=== PATIENT | female | born 1985 | race Caucasian/White ===

== ENCOUNTER 2016-08-09 12:53 | Inpatient (IN) | payer MEDICARE ==
[2016-08-09 15:23] VITALS: BMI 23.3
--- NOTE | 2016-08-09 15:47 | HP ---
COWS - Scale Resting Pulse: 1= NM 81-100 Sweatin= Chills/Flushing Restless Observation: 3= Extraneous Movement Pupil Size: 2= Moderately Dilated Bone or Joint Aches: 2= Severe Diffuse Aches Runny Nose/ Eye Tearin= Runny Nose/Eyes GI Upset > 30mins: 3= Vomiting/Diarrhea Tremor Observation: 2= Slight Tremor Visible Yawning Observation: 2= >3x During Session Anxiety or Irritability: 2=Irritable/Anxious Goose Flesh Skin: 0=Smooth Skin COWS Score: 20 Admission ROS BHS - HPI Chief Complaint: i need help to stop using heroin Allergies/Adverse Reactions: Allergies Allergy/AdvReac Type Severity Reaction Status Date / Time No Known Allergies Allergy Verified 08/09/16 15:42 History of Present Illness: this 31 years old female with heroin dependence,withdrawal symptom,never been in inpatient detox before, in out patient detox 07/09 to 07/17/16 unsuccessful never been in in patient before nicotine dependence depression stated need help to stop using drug Exam Limitations: No Limitations - Ebola screening Have you traveled outside of the country in the last 21 days: No Have you had contact with anyone from an Ebola affected area: No Have you been sick,other than usual withdrawal symptoms: No Do you have a fever: No - Review of Systems Constitutional: Chills, Loss of Appetite, Malaise, Night Sweats, Changes in sleep, Weakness, Unintentional Wgt. Loss EENT: reports: Tearing, Nose Congestion Respiratory: reports: No Symptoms reported Cardiac: reports: No Symptoms Reported GI: reports: Diarrhea, Nausea, Vomiting, Abdominal cramping : reports: No Symptoms Reported Musculoskeletal: reports: Back Pain, Joint Pain, Muscle Pain Integumentary: reports: Dryness Neuro: reports: Headache, Tremors Endocrine: reports: No Symptoms Reported Hematology: reports: No Symptoms Reported Psychiatric: reports: Depressed Patient History - Patient Medical History Hx Anemia: No Hx Asthma: No Hx Chronic Obstructive Pulmonary Disease (COPD): No Hx Cancer: No Hx Cardiac Disorders: No Hx Congestive Heart Failure: No Hx Hypertension: No Hx Hypercholesterolemia: No Hx Pacemaker: No HX Cerebrovascular Accident: No Hx Seizures: No Hx Dementia: No Hx Diabetes: No Hx Gastrointestinal Disorders: No Hx Liver Disease: No Hx Genitourinary Disorders: No Hx Sexually Transmitted Disorders: No Hx Renal Disease (ESRD): No Hx Thyroid Disease: No Hx Human Immunodeficiency Virus (HIV): No (last tested 07/20) Hx Hepatitis C: No Hx Depression: Yes (on med) Hx Suicide Attempt: No Hx Bipolar Disorder: No Hx Schizophrenia: No Other Medical History: no suicidal,no homicidal,cervical herniated disc 10 years - Patient Surgical History Hx Neurologic Surgery: Yes Hx Breast Surgery: Yes (breast augmention of right breast since age 15 years, unsucessful,follow up ) - PPD History Previous Implant?: Yes Documented Results: Negative w/o proof PPD to be Administered?: Yes - Reproductive History Patient is a Female of Child Bearing Age (11 -55 yrs old): Yes Last Menstrual Period: 07/09/16 Patient : No - Smoking Cessation Smoking history: Current every day smoker Have you smoked in the past 12 months: Yes Aproximately how many cigarettes per day: 20 Cigars Per Day: 0 Hx Chewing Tobacco Use: No Initiated information on smoking cessation: Yes 'Breaking Loose' booklet given: 08/09/16 - Substance & Tx. History Hx Alcohol Use: No Hx Substance Use: Yes Substance Use Type: Heroin Hx Substance Use Treatment: No - Substances Abused Heroin Route: Injection Frequency: Daily Amount used: 3 bags Age of first use: 27 Date of Last Use: 08/09/16 Marijuana/Hashish Route: Smoking Frequency: 1-3 times last 30 days Amount used: 10$ Age of first use: 12 Date of Last Use: 07/27/16 Family Disease History - Family Disease History Family Disease History: Other: Father (alcohol) Admission Physical Exam S - Vital Signs Vital Signs: Vital Signs - 24 hr 08/09/16 15:17 Temperature 97.3 F L Pulse Rate 86 Respiratory 18 Rate Blood Pressure 104/67 - Physical General Appearance: Yes: Moderate Distress, Tremorous, Irritable, Sweating, Anxious HEENTM: Yes: Nasal Congestion, Rhinorrhea, Microcephalic Respiratory: Yes: Lungs Clear Neck: Yes: Within Normal Limits Breast: Yes: Breast Exam Deferred Cardiology: Yes: Within Normal Limits, Regular Rhythm, Regular Rate, S1, S2 Abdominal: Yes: Within Normal Limits, Normal Bowel Sounds, Non Tender, Flat, Soft Genitourinary: Yes: Within Normal Limits Back: Yes: Muscle Spasm Musculoskeletal: Yes: Back pain, Joint Stiffness, Muscle Pain Extremities: Yes: Tremors 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 - Detox or Rehab [facility] Level of Care: Medically Managed Detox Regimen/Protocol: Methadone [facility] Breath Alcohol Content Breath Alcohol Content: 0 Urine Pregancy Test - Result Urine Test Results: Negative- NO Line Present Urine Drug Screen - Results Drug Screen Negative: No Urine Drug Screen Results: THC-Marijuana, OPI-Opiates, BZO-Benzodiazepines, OXY- Oxycodone
[2016-08-09] MEDS ORDERED: MAGNESIUM HYDROX 2400MG/30ML ORAL SUSPENSION 30 ML CUP PO PRN (16:10)
[2016-08-09] MEDS ORDERED: MAGNESIUM CITRATE 300 ML BOTTLE PO PRN (16:10)
[2016-08-09] MEDS ORDERED: ACETAMINOPHEN 325 MG TABLET (FP) PO PRN (16:10)
[2016-08-09] MEDS ORDERED: LOPERAMIDE HCL 2 MG CAPSULE PO PRN (16:10)
[2016-08-09] MEDS ORDERED: P-EPHED 60MG/TRIPROLIDI 2.5MG TABLET PO PRN (16:10)
[2016-08-09] MEDS ORDERED: METHADONE HCL 10 MG TABLET (FOR DETOX USE ONLY) PO ONE ×2 (16:10→23:00)
[2016-08-09] MEDS ORDERED: MAG HYDROX/AL HYDROX/SIMETH 30 ML UNIT-DOSE CUP PO PRN (16:10)
[2016-08-09] MEDS ORDERED: IBUPROFEN 400 MG TABLET (FP) PO PRN (16:10)
[2016-08-09] MEDS ORDERED: guaiFENesin/D-METHORPHAN HB 10 ML UNIT-DOSE CUPS PO PRN (16:10)
[2016-08-09] MEDS ORDERED: MENTHOL/PHENOL 1 EACH UD MM PRN (16:10)
[2016-08-09] MEDS ORDERED: hydrOXYzine PAMOATE 25 MG CAPSULE (FP) PO PRN (16:15)
[2016-08-09] MEDS: diazePAM 5 MG TABLET PO PRN ×2 (17:34→22:34)
[2016-08-09] MEDS: NICOTINE 21 MG/24 HOURS TOPICAL PATCH TD SCH (17:39)
[2016-08-09] MEDS: NICOTINE POLACRILEX 2 MG GUM BUC PRN ×3 (17:42→23:43)
[2016-08-09 19:57] LABS: URINE APPEARANCE CLEAR; URINE BILIRUBIN NEGATIVE (NEGATIVE); URINE BLOOD NEGATIVE (NEGATIVE); URINE COLOR YELLOW; URINE GLUCOSE (UA) NEGATIVE (NEGATIVE); URINE KETONE 1+ (NEGATIVE); URINE LEUK ESTERASE NEGATIVE (NEGATIVE); URINE NITRITE NEGATIVE (NEGATIVE); URINE PROTEIN NEGATIVE (NEGATIVE); URINE UROBILINOGEN NEGATIVE E.U./dl (0.2-1.0)
[2016-08-09] MEDS: diphenhydrAMINE HCL 50 MG CAPSULE PO PRN (22:33)
[2016-08-09] MEDS: THIAMINE HCL 100 MG TABLET (FP) PO SCH (22:34)
[2016-08-10] MEDS: diazePAM 5 MG TABLET PO PRN ×4 (07:05→23:58)
[2016-08-10] MEDS: NICOTINE POLACRILEX 2 MG GUM BUC PRN ×2 (07:06→10:48)
--- NOTE | 2016-08-10 09:24 | EKG ---
Test Reason : Blood Pressure : / mmHG Vent. Rate : 066 BPM Atrial Rate : 066 BPM P-R Int : 150 ms QRS Dur : 082 ms QT Int : 398 ms P-R-T Axes : 054 062 036 degrees QTc Int : 417 ms NORMAL SINUS RHYTHM POSSIBLE LEFT ATRIAL ENLARGEMENT BORDERLINE ECG NO PREVIOUS ECGS AVAILABLE Confirmed by JESUS VIDAL MD ([id number]) on 08/10/2016 9:23:54 AM Referred By: Confirmed By:JESUS VIDAL MD
[2016-08-10 09:58] LABS: ALBUMIN 3.7 g/dl (3.4-5.0); ANION GAP 5 (8-16); CALCIUM 8.7 mg/dL (8.5-10.1); CO2 29 mmol/L (21-32); GLUCOSE,RANDOM 60 mg/dL (74-106); SGOT/AST 16 U/L (15-37); SGPT/ALT 19 U/L (12-78)
[2016-08-10 10:00] LABS: ALK PHOS 111 U/L (45-117); BILIRUBIN,TOTAL 0.3 mg/dL (0.2-1.0); TOT PROT 7.6 g/dl (6.4-8.2)
[2016-08-10] MEDS ORDERED: METHADONE HCL 10 MG TABLET (FOR DETOX USE ONLY) PO ONE (10:00)
[2016-08-10 10:35] LABS: MCH 28.3 pg (25.7-33.7); MCHC 32.9 g/dl (32.0-36.0); MEAN CELL VOLUME 86.1 fl (80-96); MEAN PLT VOLUME 9.9 fl (7.5-11.1); PLATELET COUNT 220 K/MM3 (134-434); RDW 14.9 % (11.6-15.6); WHITE BLOOD COUNT 9.7 K/mm3 (4.0-10.0)
[2016-08-10] MEDS: PRENATAL VITAMINS W/ FOLIC ACID TABLET (FP) PO SCH (10:45)
[2016-08-10] MEDS: NICOTINE 21 MG/24 HOURS TOPICAL PATCH TD SCH (10:45)
[2016-08-10] MEDS ORDERED: FLUCONAZOLE 50 MG TABLET PO ONE (11:31)
[2016-08-10] MEDS ORDERED: INFLUENZA VACCINE 45 MCG/0.5 ML (MDV 16-17) IM ONE (12:00)
--- NOTE | 2016-08-10 12:04 | CONSULT ---
[facility] Psychiatric Consult - Data Date of interview: 08/10/16 Admission source: [facility] Identifying data: This is 31 years ols single female,unemployed, supported by family(lost her job recently) admitted to [address] [place] [address] for Opioid dependence,Cocaine and Alcohol abuse. Substance Abuse History: Patient reports using heroin since 27 years old(1-3 bags IV daily),she also reports drinking and using cocaine on and off. Medical History: Herniated disk. Psychiatric History: patient reports anxiety,depressed mood on and off since very young age.She didint address these issues to psychiatrist.Patient used to medicate her anxiety with drugs.States that she obtains Cymbalta 60 mg po daily and Neurontin 800 mg po hs fron her PCP. Physical/Sexual Abuse/Trauma History: denies Mental Status Exam - Mental Status Exam Cognitive Function: Grossly Intact Patient Appearance: Well Groomed Mood: Anxious Affect: Labile Patient Behavior: Cooperative Speech Pattern: Clear Voice Loudness: Normal Thought Process: Goal Oriented Thought Disorder: Not Present Hallucinations: Denies Suicidal Ideation: Denies Homicidal Ideation: Denies Insight/Judgement: Fair Sleep: Difficulty falling asleep Appetite: Fair Muscle strength/Tone: Normal Gait/Station: Normal Psychiatric Findings - Problem List ([place] 1, 2,3) (1) Cannabis dependence Current Visit: Yes Status: Chronic (2) Cervical herniated disc Current Visit: Yes Status: Chronic (3) Nicotine dependence Current Visit: Yes Status: Chronic (4) Opioid dependence with withdrawal Current Visit: Yes Status: Chronic (5) Substance induced mood disorder Current Visit: Yes Status: Chronic - Initial Treatment Plan Initial Treatment Plan: Continue Cymbalta 60 mg po daily and Neurontin 800 mg po hs.
--- NOTE | 2016-08-10 14:10 | PN ---
BHS COWS - Scale Resting Pulse: 0= DC 80 or Below Sweatin= Chills/Flushing Restless Observation: 3= Extraneous Movement Pupil Size: 1= Pupils >than Normal Bone or Joint Aches: 2= Severe Diffuse Aches Runny Nose/ Eye Tearin= Runny Nose/Eyes GI Upset > 30mins: 3= Vomiting/Diarrhea Tremor Observation of Outstretched Hands: 2= Slight Tremor Visible Yawning Observation: 2= >3x During Session Anxiety or Irritability: 2=Irritable/Anxious Goose Flesh Skin: 0=Smooth Skin COWS Score: 18 BHS Progress Note (SOAP) Subjective: ALERT,IRRITABLE,ANXIOUS,TREMOR,PAIN IN THE BODY,JOINT AND BACK, STATED CONSTIPATED,HAS YEAST INFECTION Objective: 08/10/16 14:08 Vital Signs Temperature 97.7 F 08/10/16 10:00 Pulse Rate 64 08/10/16 10:00 Respiratory Rate 18 08/10/16 10:00 Blood Pressure 109/67 08/10/16 10:00 O2 Sat by Pulse Oximetry (%) EKG NSR Laboratory Last Values WBC 9.7 K/mm3 (4.0-10.0) 08/10/16 08:00 RBC 4.89 M/mm3 (3.60-5.2) 08/10/16 08:00 Hgb 13.9 GM/dL (10.7-15.3) 08/10/16 08:00 Hct 42.1 % (32.4-45.2) 08/10/16 08:00 MCV 86.1 fl (80-96) 08/10/16 08:00 MCHC 32.9 g/dl (32.0-36.0) 08/10/16 08:00 RDW 14.9 % (11.6-15.6) 08/10/16 08:00 Plt Count 220 K/MM3 (134-434) 08/10/16 08:00 MPV 9.9 fl (7.5-11.1) 08/10/16 08:00 Sodium 141 mmol/L (136-145) 08/10/16 08:00 Potassium 3.9 mmol/L (3.5-5.1) 08/10/16 08:00 Chloride 107 mmol/L (98-107) 08/10/16 08:00 Carbon Dioxide 29 mmol/L (21-32) 08/10/16 08:00 Anion Gap 5 (8-16) L 08/10/16 08:00 BUN 14 mg/dL (7-18) 08/10/16 08:00 Creatinine 1.0 mg/dL (0.55-1.02) 08/10/16 08:00 Creat Clearance w eGFR > 60 (>60) 08/10/16 08:00 Random Glucose 60 mg/dL (74-106) L 08/10/16 08:00 Calcium 8.7 mg/dL (8.5-10.1) 08/10/16 08:00 Total Bilirubin 0.3 mg/dL (0.2-1.0) 08/10/16 08:00 AST 16 U/L (15-37) 08/10/16 08:00 ALT 19 U/L (12-78) 08/10/16 08:00 Alkaline Phosphatase 111 U/L (45-117) 08/10/16 08:00 Total Protein 7.6 g/dl (6.4-8.2) 08/10/16 08:00 Albumin 3.7 g/dl (3.4-5.0) 08/10/16 08:00 Urine Color Yellow 08/09/16 19:30 Urine Appearance Clear 08/09/16 19:30 Urine pH 6.0 (5.0-8.0) 08/09/16 19:30 Ur Specific [place] 1.011 (1.001-1.035) 08/09/16 19:30 Urine Protein Negative (NEGATIVE) 08/09/16 19:30 Urine Glucose (UA) Negative (NEGATIVE) 08/09/16 19:30 Urine Ketones 1+ (NEGATIVE) H 08/09/16 19:30 Urine Blood Negative (NEGATIVE) 08/09/16 19:30 Urine Nitrite Negative (NEGATIVE) 08/09/16 19:30 Urine Bilirubin Negative (NEGATIVE) 08/09/16 19:30 Urine Urobilinogen Negative E.U./dl (0.2-1.0) 08/09/16 19:30 Ur Leukocyte Esterase Negative (NEGATIVE) 08/09/16 19:30 RPR Titer Nonreactive (NONREACTIVE) 08/10/16 08:00 01/16/17 14:12 Assessment: 08/10/16 14:10 WITHDRAWAL SYMPTOM 08/10/16 14:12 Plan: CONTINUE DETOX,BGM IN AM,INITIAL GLUCOSE 60,REPEAT BGM IN AM,DIFLUCAN 150 MGS PO ONCE
[2016-08-10] MEDS: SILVER SULFADIAZINE 1% TOP CREAM 50 GM JAR TP SCH ×2 (14:16→23:09)
[2016-08-10] MEDS: DULoxetine HCL 60 MG CAPSULE.DR PO SCH (14:16)
[2016-08-10] MEDS ORDERED: GABAPENTIN 400 MG CAPSULE (FP) PO SCH (22:00)
[2016-08-10] MEDS: diphenhydrAMINE HCL 50 MG CAPSULE PO PRN (22:43)
[2016-08-10] MEDS: THIAMINE HCL 100 MG TABLET (FP) PO SCH (22:43)
--- NOTE | 2016-08-11 09:11 | DS ---
[facility] Detox Discharge Summary Admission Date: 08/09/16 Discharge Date: 08/11/16 - History Present History: Opioid Dependence - Physical Exam Results Vital Signs: Vital Signs Temperature 96 F L 08/11/16 07:00 Pulse Rate 74 08/11/16 07:00 Respiratory Rate 18 08/11/16 07:00 Blood Pressure 128/76 08/11/16 07:00 O2 Sat by Pulse Oximetry (%) - Treatment Hospital Course: Detox Protocol Followed - Medication Discharge Medications: Ambulatory Orders Duloxetine HCl [Cymbalta] 60 mg PO DAILY 08/09/16 Gabapentin 800 mg PO DAILY 08/09/16 Ibuprofen 600 mg PO PRN 08/09/16 Duloxetine HCl [Cymbalta -] 60 mg PO DAILY #30 capsule. 08/10/16 Gabapentin [Neurontin -] 800 mg PO HS #60 capsule 08/10/16 - Diagnosis (1) Depression Current Visit: Yes Status: Chronic Qualifiers: Depression Type: unspecified Qualified Code(s): F32.9 - Major depressive disorder, single episode, unspecified (2) Cannabis dependence Current Visit: Yes Status: Chronic (3) Nicotine dependence Current Visit: Yes Status: Chronic (4) Opioid dependence with withdrawal Current Visit: Yes Status: Chronic - AMA Did Patient Leave Against Medical Advice: Yes (i just want to leave )
[2016-08-11] MEDS ORDERED: METHADONE HCL 5 MG TABLET (FOR DETOX USE ONLY) PO ONE (10:00)
[2016-08-11] MEDS: DULoxetine HCL 60 MG CAPSULE.DR PO SCH (10:08)
[2016-08-11] MEDS: PRENATAL VITAMINS W/ FOLIC ACID TABLET (FP) PO SCH (10:08)
[2016-08-11 10:24] VITALS: BP 121/73; PULSE 65; TEMP 97
[2016-08-12] MEDS ORDERED: METHADONE HCL 5 MG TABLET (FOR DETOX USE ONLY) PO ONE (10:00)
[2016-08-13] MEDS ORDERED: METHADONE HCL 10 MG TABLET (FOR DETOX USE ONLY) PO ONE (10:00)
[2016-08-14] MEDS ORDERED: METHADONE HCL 5 MG TABLET (FOR DETOX USE ONLY) PO ONE (06:00)
== END 2016-08-11 10:47 | disposition left against medical advice (07) | DRG 770 ==
LOC: YASAS 12:53 → Y6N 16:13
PROVIDERS: ADMIT Internal Medicine Addiction Medicine; ATTEND Internal Medicine Addiction Medicine
PROC: HZ2ZZZZ Detoxification Services for Substance Abuse Treatment (ICD-10-PCS; principal; 2016-08-09)
DX: F11.23 Opioid dependence with withdrawal (principal); F12.20 Cannabis dependence, uncomplicated; F17.210 Nicotine dependence, cigarettes, uncomplicated; F19.24 Other psychoactive substance dependence with psychoactive substance-induced mood disorder; F32.9 Major depressive disorder, single episode, unspecified; M50.20 Other cervical disc displacement, unspecified cervical region
CPT/HCPCS: 36415; 80053; 81003; 85027; 86593; 93005; 93010